=== PATIENT | female | born 1975 | race African-American/Black ===

== ENCOUNTER 2016-12-10 21:38 | Emergency (ER) | payer MEDICAID ==
[~2016-12-10] VITALS: Ht 157.5 cm; Wt 109.0 kg
[~2016-12-10 21:38] MED LIST: ASPIRIN; HCTZ; HYDR12.518; LABETALOL; LISINOPRIL; SIMVASTATIN
[2016-12-11] MEDS ORDERED: KETOROLAC 60MG/2ML VIAL IM STA
[2016-12-11] MEDS ORDERED: LORAZEPAM 2MG/ML CPJ IM STA
[2016-12-11 00:28] LABS: CHLORIDE 104 mEq/L (98-107); INDEX HEMOLYSI 1 (1-3); INDEX ICTERIC 1 (1-4); INDEX LIPEMIC 1 (1-3)
[2016-12-11 00:31] LABS: BASOPHILS % 1.4 % (0.0-2.0); EOSINOPHILS % 1.7 % (0.0-5.0); HEMATOCRIT. 37.6 % (36.0-48.0); HEMOGLOBIN. 12.2 g/dL (12.0-16.0); LYMPHOCYTES % 37.3 % (20.0-50.0); MEAN CORPUSCULAR HEMOGLOBIN 27.1 pg (28.0-32.0); MEAN CORPUSCULAR HGB CONC 32.5 g/dL (31.0-37.0); MEAN CORPUSCULAR VOLUME 83.4 fL (81.0-99.0); MONOCYTES % 5.4 % (2.0-8.0); NEUTROPHILS % 54.2 % (40.0-76.0); PLATELET 357 x1000/uL (130-400); RED BLOOD CELL COUNT 4.51 mill/uL (4.2-5.4); RED CELL DISTRIBUTION WIDTH 16.1 % (11.6-14.6); WHITE BLOOD COUNT 9.9 x1000/uL (4.5-11.0)
[2016-12-11 00:37] LABS: ACETAMINOPHEN < 2 ug/mL (10-30); ALANINE AMINOTRANSFERASE 36 IU/L (13-61); ALBUMIN 3.4 g/dL (3.4-5.0); ANION GAP 9; CALCIUM 8.9 mg/dL (8.5-10.1); CARBON DIOXIDE 31 mEq/L (21-32); ETHANOL BLOOD < 10 mg/dL; UREA NITROGEN BLOOD 28 mg/dL (7-21); eGFR > 60 mL/min (>60)
[2016-12-11 00:57] LABS: CLARITY URINE CLEAR (CLEAR); COLOR URINE YELLOW (YELLOW); GLUCOSE URINE NEGATIVE (NEGATIVE); KETONES URINE NEGATIVE (NEGATIVE); LEUKOCYTE ESTERASE URINE NEGATIVE (NEGATIVE); NITRITE URINE NEGATIVE (NEGATIVE); OCCULT BLOOD URINE 1+ (NEGATIVE); PH URINE 5.5 (4.5-8.0); PROTEIN URINE NEGATIVE (NEGATIVE); SPECIFIC GRAVITY URINE 1.018 (1.005-1.030); UROBILINOGEN URINE 0.2 E.U./dL (0.2-1.0)
[2016-12-11 01:01] LABS: BACTERIA URINE NONE SEEN; CALCIUM PHOSPHATE CRYSTALS UR NONE SEEN /lpf; RBC URINE 0-2 /hpf (0-2); SQUAMOUS EPITHELIAL CELL URINE 1+ /lpf (RARE/1+); WAXY CASTS URINE NONE SEEN /lpf; WBC URINE NONE SEEN /hpf (0-2); YEAST URINE NONE SEEN
[2016-12-11 01:08] LABS: *AMPHETAMINES SCREEN URINE NEGATIVE (NEGATIVE); *BARBITURATES SCREEN URINE NEGATIVE (NEGATIVE); *BENZODIAZEPINES SCREEN URINE NEGATIVE (NEGATIVE); *COCAINE SCREEN URINE NEGATIVE (NEGATIVE); CANNABINOID URINE SCREEN NEGATIVE (NEGATIVE); ECSTASY MDMA SCREEN URINE NEGATIVE (NEGATIVE); METHADONE URINE SCREEN NEGATIVE (NEGATIVE); OPIATES URINE SCREEN NEGATIVE (NEGATIVE); PHENCYCLIDINE URINE SCREEN NEGATIVE (NEGATIVE)
[2016-12-11] MEDS ORDERED: TRAMADOL 50MG TABLET PO ONE (06:15)
[2016-12-11] MEDS ORDERED: KETOROLAC 60MG/2ML VIAL IM ONE (09:30)
[2016-12-11 16:40] VITALS: BP 148/88
== END 2016-12-11 16:51 ==
LOC: ER 21:39
DX: R45.851 Suicidal ideations (principal); R44.0 Auditory hallucinations; M25.561 Pain in right knee; M25.562 Pain in left knee; F17.200 Nicotine dependence, unspecified, uncomplicated; I10 Essential (primary) hypertension; G62.9 Polyneuropathy, unspecified; Z79.82 Long term (current) use of aspirin; Z79.899 Other long term (current) drug therapy
CPT/HCPCS: 36415; 80053; 80305; 80307; 80329; 81001; 81025; 85025; 96372; 99285; G0482; J1885; J2060

== ENCOUNTER 2017-01-12 00:44 | Emergency (ER) | payer MEDICAID ==
[~2017-01-12] VITALS: Ht 165.1 cm; Wt 113.0 kg
[2017-01-12] MEDS ORDERED: ALBUTEROL (0.083%) 2.5MG/3ML NEB HHN STA (01:13)
[2017-01-12] MEDS ORDERED: METHYLPREDNISOLONE SOD SUCC 125 MG/2 ML VIAL IV STA (01:13)
[2017-01-12] MEDS ORDERED: ONDANSETRON HCL 4MG/2ML VIAL IV STA (01:13)
[2017-01-12] MEDS ORDERED: IPRATROPIUM BROMIDE (0.02%) 0.5MG/2.5ML NEB HHN STA (01:13)
[2017-01-12] MEDS ORDERED: DIPHENHYDRAMINE 50MG/ML VIAL IV ONE (01:15)
[2017-01-12 01:26] LABS: BASOPHILS % 0.8 % (0.0-2.0); EOSINOPHILS % 0.9 % (0.0-5.0); HEMOGLOBIN. 12.5 g/dL (12.0-16.0); LYMPHOCYTES % 44.5 % (20.0-50.0); MEAN CORPUSCULAR VOLUME 81.6 fL (81.0-99.0); MEAN PLATELET VOLUME 6.9 fl (7.4-10.4); MONOCYTES % 6.7 % (2.0-8.0); NEUTROPHILS % 47.1 % (40.0-76.0); PLATELET 406 x1000/uL (130-400); RED BLOOD CELL COUNT 4.65 mill/uL (4.2-5.4); RED CELL DISTRIBUTION WIDTH 15.9 % (11.6-14.6); WHITE BLOOD COUNT 12.7 x1000/uL (4.5-11.0)
[2017-01-12 01:43] LABS: ANION GAP 13; CALCIUM 9.1 mg/dL (8.5-10.1); CARBON DIOXIDE 28 mEq/L (21-32); CHLORIDE 97 mEq/L (98-107); INDEX HEMOLYSI 1 (1-3); INDEX ICTERIC 1 (1-4); INDEX LIPEMIC 1 (1-3); TROPONIN I < 0.02 ng/mL (0.00-0.04); UREA NITROGEN BLOOD 16 mg/dL (7-21); eGFR > 60 mL/min (>60)
[2017-01-12 01:55] LABS: NT PRO B-TYPE NATRIURETIC PEP 236 pg/mL (5-125)
[2017-01-12 04:09] VITALS: BP 136/89
== END 2017-01-12 04:28 | disposition home or self-care (01) ==
LOC: ER 00:51
DX: J45.901 Unspecified asthma with (acute) exacerbation (principal); I10 Essential (primary) hypertension; F17.210 Nicotine dependence, cigarettes, uncomplicated
CPT/HCPCS: 36415; 71010; 80048; 83880; 84484; 85025; 93005; 94640; 96374; 96375; 99285; J1200; J2405; J2930; J7611; Z7610

== ENCOUNTER 2019-11-28 22:34 | Emergency (ER) | payer MEDICAID ==
[~2019-11-28] VITALS: Ht 170.2 cm; Wt 114.0 kg
[2019-11-28] MEDS ORDERED: ACETAMINOPHEN 325MG TABLET PO STA (23:03)
[2019-11-28] MEDS ORDERED: SODIUM CHLORIDE 0.9% 1,000 ML IV ONE (23:03)
[2019-11-28] MEDS ORDERED: ONDANSETRON HCL 4MG/2ML INJ IV STA (23:03)
[2019-11-28] MEDS ORDERED: CEFTRIAXONE 1 G PREMIX 50 ML IV ONE (23:15)
[2019-11-28] MEDS ORDERED: AZITHROMYCIN 500 MG in DEXT 5% WATER 250 ML IV ONE (23:15)
[2019-11-28] MEDS ORDERED: GUAIFENESIN/CODEINE 200-20MG/10ML UDC PO ONE (23:15)
[2019-11-28 23:37] LABS: CHLORIDE 101 mEq/L (98-107)
[2019-11-28 23:40] LABS: BASOPHILS % 0.7 % (0.0-2.0); HEMATOCRIT. 40.3 % (36.0-48.0); HEMOGLOBIN. 13.3 g/dL (12.0-16.0); MEAN CORPUSCULAR HEMOGLOBIN 26.5 pg (28.0-32.0); MEAN CORPUSCULAR VOLUME 80.1 fL (81.0-99.0); MONOCYTES % 7.2 % (2.0-8.0); NEUTROPHILS % 82.1 % (40.0-76.0); PLATELET 280 x1000/uL (130-400); RED BLOOD CELL COUNT 5.03 mill/uL (4.2-5.4); RED CELL DISTRIBUTION WIDTH 16.4 % (11.6-14.6)
[2019-11-29] MEDS: GUAIFENESIN 200MG/10ML SUGAR FREE UDC PO NR ×2 (00:15→00:50)
[2019-11-29 00:31] LABS: CLARITY URINE CLOUDY (CLEAR); COLOR URINE YELLOW (YELLOW); KETONES URINE NEGATIVE (NEGATIVE); LEUKOCYTE ESTERASE URINE 1+ (NEGATIVE); NITRITE URINE POSITIVE (NEGATIVE); OCCULT BLOOD URINE NEGATIVE (NEGATIVE); PH URINE 6.5 (4.5-8.0); PROTEIN URINE 1+ (NEGATIVE)
[2019-11-29 03:40] VITALS: BP 151/101
== END 2019-11-29 03:39 | disposition home or self-care (01) ==
LOC: ER 22:34
DX: J40 Bronchitis, not specified as acute or chronic (principal); N39.0 Urinary tract infection, site not specified; I10 Essential (primary) hypertension; F17.200 Nicotine dependence, unspecified, uncomplicated; Z88.6 Allergy status to analgesic agent; Z79.82 Long term (current) use of aspirin
CPT/HCPCS: 36415; 71045; 80053; 81003; 83605; 85025; 87040; 96365; 96367; 96375; 99284; J0456; J0696; J2405; J7030; J7060

== ENCOUNTER 2020-06-11 09:32 | Inpatient (IN) | payer MEDICAID ==
[~2020-06-11] VITALS: Ht 170.2 cm; Wt 133.8 kg
[2020-06-11] MEDS ORDERED: ONDANSETRON HCL 4MG/2ML INJ IV STA (09:53)
[2020-06-11] MEDS ORDERED: DILTIAZEM HCL 5MG/ML 5ML VIAL IV ONE (10:00)
[2020-06-11] MEDS ORDERED: DILTIAZEM HCL 30MG TABLET PO ONE (10:15)
[2020-06-11 10:22] LABS: EOSINOPHILS % 3.1 % (0.0-5.0); HEMOGLOBIN. 13.9 g/dL (12.0-16.0); LYMPHOCYTES % 41.5 % (20.0-50.0); MEAN CORPUSCULAR HEMOGLOBIN 27.5 pg (28.0-32.0); MEAN PLATELET VOLUME 7.7 fl (7.4-10.4); NEUTROPHILS % 49.4 % (40.0-76.0); PLATELET 429 x1000/uL (130-400); RED BLOOD CELL COUNT 5.06 mill/uL (4.2-5.4); RED CELL DISTRIBUTION WIDTH 15.7 % (11.6-14.6)
[2020-06-11 10:28] LABS: CHLORIDE 108 mEq/L (98-107)
[2020-06-11 10:33] LABS: ETHANOL BLOOD < 10 mg/dL; HCG SCREEN NEGATIVE; PARTIAL THROMBOPLASTIN TIME 26.7 sec (23.4-31.0); PROTHROMBIN TIME 10.7 sec (9.6-11.0)
[2020-06-11] MEDS ORDERED: ONDANSETRON HCL 4MG/2ML INJ IV PRN (10:45)
[2020-06-11] MEDS ORDERED: KCL 20MEQ/100ML PREMIX 100 ML IV ONE (11:00)
[2020-06-11] MEDS ORDERED: ENOXAPARIN 100MG/ML SYR SUBCUT ONE (11:00)
[2020-06-11] MEDS ORDERED: POTASSIUM CHLORIDE 20MEQ TABLET SR PO ONE (11:00)
[2020-06-11] MEDS: POTASSIUM CHLORIDE 20MEQ TABLET SR PO SCH (11:32)
[2020-06-11] MEDS: FUROSEMIDE 40MG/4ML VIAL IVP SCH (11:32)
[2020-06-11] MEDS ORDERED: ENOXAPARIN 100MG/ML SYR SUBCUT SCH (11:55)
[2020-06-11] MEDS ORDERED: POTASSIUM CHLORIDE INJ 40 MEQ in DEXT 5% WATER 250 ML IV SCH (13:00)
[2020-06-11 13:15] VITALS: BP 140/68
[2020-06-11 13:51] VITALS: BP 140/68
[2020-06-11] MEDS: DILTIAZEM HCL 60MG TABLET PO SCH ×2 (14:44→21:07)
[2020-06-11] MEDS ORDERED: LISI40TA4 MT (16:42)
[2020-06-11] MEDS ORDERED: BUPR75TA8 MT ×2 (16:42→16:43)
[2020-06-11] MEDS ORDERED: CHLO50TA MT (16:42)
[2020-06-11] MEDS ORDERED: SPIR50TA5 MT (16:42)
[2020-06-11] MEDS ORDERED: LABE100T5 PO (16:42)
[2020-06-11] MEDS ORDERED: AMLO10TA80 MT (16:42)
[2020-06-11 20:25] VITALS: BP 147/93
[2020-06-11] MEDS: ENOXAPARIN 100MG/ML SYR SUBCUT SCH (20:48)
[2020-06-11] MEDS: ATORVASTATIN CALCIUM 10MG TABLET PO SCH (20:48)
[2020-06-11] MEDS: HYDROCODONE/ACETAMINOPHEN 10/325MG TABLET PO PRN (20:49)
[2020-06-11] MEDS: CARVEDILOL 12.5MG TABLET PO SCH (20:49)
[2020-06-12] VITALS (7 sets, daily range): BP systolic 94–140; BP diastolic 63–102
[2020-06-12] MEDS: DILTIAZEM HCL 60MG TABLET PO SCH (06:33)
[2020-06-12 07:23] LABS: BASOPHILS % 0.9 % (0.0-2.0); HEMATOCRIT. 36.6 % (36.0-48.0); HEMOGLOBIN. 12.4 g/dL (12.0-16.0); LYMPHOCYTES % 57.4 % (20.0-50.0); MEAN CORPUSCULAR HEMOGLOBIN 27.7 pg (28.0-32.0); MEAN CORPUSCULAR VOLUME 81.7 fL (81.0-99.0); MEAN PLATELET VOLUME 8.1 fl (7.4-10.4); NEUTROPHILS % 33.7 % (40.0-76.0); PLATELET 354 x1000/uL (130-400); RED BLOOD CELL COUNT 4.47 mill/uL (4.2-5.4); RED CELL DISTRIBUTION WIDTH 15.7 % (11.6-14.6)
[2020-06-12] MEDS ORDERED: POTASSIUM CHLORIDE 20MEQ TABLET SR PO NR (08:45)
[2020-06-12] MEDS: ENOXAPARIN 100MG/ML SYR SUBCUT SCH ×2 (08:47→21:05)
[2020-06-12] MEDS: POTASSIUM CHLORIDE 20MEQ TABLET SR PO SCH (08:47)
[2020-06-12] MEDS: ASPIRIN 81MG EC TABLET PO SCH (08:48)
[2020-06-12] MEDS: CARVEDILOL 12.5MG TABLET PO SCH (08:48)
[2020-06-12] MEDS: FUROSEMIDE 40MG/4ML VIAL IVP SCH (08:48)
[2020-06-12] MEDS: HYDROCODONE/ACETAMINOPHEN 10/325MG TABLET PO PRN ×2 (11:43→21:12)
[2020-06-12] MEDS: DILTIAZEM HCL 30MG TABLET PO SCH ×2 (13:21→21:05)
[2020-06-12 15:39] LABS: CLARITY URINE CLEAR (CLEAR); COLOR URINE YELLOW (YELLOW); KETONES URINE NEGATIVE (NEGATIVE); LEUKOCYTE ESTERASE URINE NEGATIVE (NEGATIVE); NITRITE URINE NEGATIVE (NEGATIVE); OCCULT BLOOD URINE NEGATIVE (NEGATIVE); PH URINE 6.5 (4.5-8.0); PROTEIN URINE NEGATIVE (NEGATIVE); UROBILINOGEN URINE 0.2 E.U./dL (0.2-1.0)
[2020-06-12 16:04] LABS: METHADONE URINE SCREEN NEGATIVE (NEGATIVE)
[2020-06-12 16:05] LABS: *AMPHETAMINES SCREEN URINE NEGATIVE (NEGATIVE); *BARBITURATES SCREEN URINE NEGATIVE (NEGATIVE); *BENZODIAZEPINES SCREEN URINE NEGATIVE (NEGATIVE); CANNABINOID URINE SCREEN NEGATIVE (NEGATIVE); PHENCYCLIDINE URINE SCREEN NEGATIVE (NEGATIVE)
[2020-06-12 16:13] LABS: *COCAINE SCREEN URINE PRESUMTIVE POSITIVE (NEGATIVE); OPIATES URINE SCREEN PRESUMTIVE POSITIVE (NEGATIVE)
[2020-06-12] MEDS ORDERED: CARVEDILOL 3.125 MG TABLET PO SCH (21:00)
[2020-06-12] MEDS: ATORVASTATIN CALCIUM 10MG TABLET PO SCH (21:05)
[2020-06-13 04:00] VITALS: BP 122/82
[2020-06-13] MEDS: DILTIAZEM HCL 30MG TABLET PO SCH ×2 (06:01→14:00)
[2020-06-13 07:42] LABS: BASOPHILS % 0.5 % (0.0-2.0); EOSINOPHILS % 3.9 % (0.0-5.0); HEMOGLOBIN. 12.9 g/dL (12.0-16.0); LYMPHOCYTES % 59.1 % (20.0-50.0); MEAN CORPUSCULAR HEMOGLOBIN 27.7 pg (28.0-32.0); MEAN CORPUSCULAR VOLUME 81.8 fL (81.0-99.0); MEAN PLATELET VOLUME 8.2 fl (7.4-10.4); MONOCYTES % 3.5 % (2.0-8.0); PLATELET 370 x1000/uL (130-400); RED BLOOD CELL COUNT 4.65 mill/uL (4.2-5.4); RED CELL DISTRIBUTION WIDTH 15.8 % (11.6-14.6)
[2020-06-13 07:43] VITALS: BP 144/102
[2020-06-13] MEDS: POTASSIUM CHLORIDE 20MEQ TABLET SR PO SCH (09:14)
[2020-06-13] MEDS: ASPIRIN 81MG EC TABLET PO SCH (09:14)
[2020-06-13] MEDS: ENOXAPARIN 100MG/ML SYR SUBCUT SCH (09:15)
[2020-06-13 11:50] VITALS: BP 132/92
[2020-06-13] MEDS ORDERED: APIX5TAB PO (13:02)
[2020-06-13] MEDS ORDERED: DILT120C88 MT (13:02)
[2020-06-13 14:19] VITALS: BP 132/92
[2020-06-13] MEDS ORDERED: APIXABAN 5 MG TABLET PO SCH (17:00)
[2020-06-14] MEDS ORDERED: POTASSIUM CHLORIDE 20MEQ TABLET SR PO SCH (09:00)
== END 2020-06-13 14:52 | disposition home or self-care (01) | DRG 201 ==
LOC: ER 09:32 → EDBEDREQ 09:56 → 6WST 10:18 → EDBEDREQSVC 10:27 → EDBEDREQ 10:27 → ENRESERV 12:09
PROVIDERS: ADMIT Internal Medicine; ATTEND Internal Medicine
DX: I48.91 Unspecified atrial fibrillation (principal); N17.0 Acute kidney failure with tubular necrosis; I11.0 Hypertensive heart disease with heart failure; E87.6 Hypokalemia; E87.8 Other disorders of electrolyte and fluid balance, not elsewhere classified; E66.9 Obesity, unspecified; E78.5 Hyperlipidemia, unspecified; E78.1 Pure hyperglyceridemia; K21.9 Gastro-esophageal reflux disease without esophagitis; E11.9 Type 2 diabetes mellitus without complications; F14.90 Cocaine use, unspecified, uncomplicated; J45.909 Unspecified asthma, uncomplicated; R00.1 Bradycardia, unspecified; F17.210 Nicotine dependence, cigarettes, uncomplicated; Z68.42 Body mass index [BMI] 45.0-49.9, adult; Z79.01 Long term (current) use of anticoagulants; Z79.899 Other long term (current) drug therapy; Z82.49 Family history of ischemic heart disease and other diseases of the circulatory system; Z82.3 Family history of stroke; Z71.6 Tobacco abuse counseling; Z86.73 Personal history of transient ischemic attack (TIA), and cerebral infarction without residual deficits; Z71.3 Dietary counseling and surveillance; Z88.8 Allergy status to other drugs, medicaments and biological substances; I25.2 Old myocardial infarction; I50.42 Chronic combined systolic (congestive) and diastolic (congestive) heart failure
CPT/HCPCS: 36415; 71045; 80048; 80053; 80061; 80305; 80320; 81003; 83036; 83735; 83880; 84443; 84484; 84703; 85025; 93005; 93306; 99291; J1650; J1940; J2405; J3480; J3490; J7060; G0480

== ENCOUNTER 2021-05-26 08:44 | Inpatient (IN) | payer MEDICAID ==
[~2021-05-26] VITALS: Ht 157.5 cm; Wt 122.5 kg
[~2021-05-26 08:44] MED LIST changes: +APIX5TAB PO; +BUPR75TA8 MT; +CHLO50TA MT; +DILT120C88 MT; +GLIP5TAB12 MT; -HCTZ; -HYDR12.518; +INSU100I13 SQ; -LABETALOL; -LISINOPRIL; +METF-416 MT; +SPIR50TA5 MT
[2021-05-26 09:53] LABS: BASOPHILS % 0.8 % (0.0-2.0); EOSINOPHILS % 3.8 % (0.0-5.0); HEMATOCRIT. 44.7 % (36.0-48.0); HEMOGLOBIN. 15.1 g/dL (12.0-16.0); LYMPHOCYTES % 41.8 % (20.0-50.0); MEAN CORPUSCULAR HEMOGLOBIN 29.3 pg (28.0-32.0); MEAN CORPUSCULAR VOLUME 86.6 fL (81.0-99.0); MEAN PLATELET VOLUME 7.5 fl (7.4-10.4); MONOCYTES % 4.9 % (2.0-8.0); NEUTROPHILS % 48.7 % (40.0-76.0); PLATELET 455 x1000/uL (130-400); RED BLOOD CELL COUNT 5.16 mill/uL (4.2-5.4); RED CELL DISTRIBUTION WIDTH 14.7 % (11.6-14.6)
[2021-05-26 09:55] LABS: CHLORIDE 103 mEq/L (98-107)
[2021-05-26] MEDS ORDERED: SODIUM CHLORIDE 0.9% 1,000 ML IV ONE (12:15)
[2021-05-26] MEDS ORDERED: ENOXAPARIN 30MG/0.3ML SYR SUBCUT SCH (13:00)
[2021-05-26] MEDS ORDERED: ONDANSETRON HCL 4MG/2ML INJ IV PRN (13:15)
[2021-05-26] MEDS ORDERED: CLONIDINE 0.1MG TABLET PO PRN (13:15)
[2021-05-26] MEDS ORDERED: DIPHENHYDRAMINE 50MG/ML VIAL IV PRN (13:15)
[2021-05-26] MEDS ORDERED: ENOXAPARIN 40MG/0.4ML SYR SUBCUT SCH (13:15)
[2021-05-26] MEDS ORDERED: ACETAMINOPHEN 325MG TABLET PO PRN (13:15)
[2021-05-26] MEDS ORDERED: IPRATROPIUM/ALBUTEROL 0.5-3(2.5)MG/3ML NEB HHN PRN (13:15)
[2021-05-26] MEDS ORDERED: POTASSIUM CHLORIDE 20MEQ TABLET SR PO NR (14:00)
[2021-05-26] MEDS: DILTIAZEM HCL 30MG TABLET PO SCH ×2 (14:35→20:28)
[2021-05-26] MEDS ORDERED: DILTIAZEM HCL 5MG/ML 5ML VIAL IV PRN (14:45)
[2021-05-26] MEDS ORDERED: ENOXAPARIN 80MG/0.8ML SYR SUBCUT NR (14:45)
[2021-05-26] MEDS ORDERED: SPIRONOLACTONE 25MG TABLET PO SCH (14:45)
[2021-05-26 17:40] LABS: CLARITY URINE CLOUDY (CLEAR); COLOR URINE YELLOW (YELLOW); KETONES URINE NEGATIVE (NEGATIVE); LEUKOCYTE ESTERASE URINE 2+ (NEGATIVE); NITRITE URINE NEGATIVE (NEGATIVE); OCCULT BLOOD URINE NEGATIVE (NEGATIVE); PH URINE 5.5 (4.5-8.0); PROTEIN URINE TRACE (NEGATIVE); UROBILINOGEN URINE 0.2 E.U./dL (0.2-1.0)
[2021-05-26 18:02] LABS: *BARBITURATES SCREEN URINE NEGATIVE (NEGATIVE)
[2021-05-26 18:03] LABS: *BENZODIAZEPINES SCREEN URINE NEGATIVE (NEGATIVE)
[2021-05-26 18:04] LABS: CANNABINOID URINE SCREEN NEGATIVE (NEGATIVE); METHADONE URINE SCREEN NEGATIVE (NEGATIVE); PHENCYCLIDINE URINE SCREEN NEGATIVE (NEGATIVE)
[2021-05-26 18:10] LABS: *AMPHETAMINES SCREEN URINE PRESUMTIVE POSITIVE (NEGATIVE); *COCAINE SCREEN URINE PRESUMTIVE POSITIVE (NEGATIVE); OPIATES URINE SCREEN PRESUMTIVE POSITIVE (NEGATIVE)
[2021-05-26] MEDS ORDERED: DEXTROSE 50% WATER 50ML SYRINGE IV PRN (23:15)
[2021-05-26] MEDS: ENOXAPARIN 120MG/0.8ML SYR SUBCUT SCH (23:50)
[2021-05-27] MEDS: DILTIAZEM HCL 30MG TABLET PO SCH ×5 (00:54→23:39)
[2021-05-27 05:55] LABS: HEMATOCRIT. 42.5 % (36.0-48.0); HEMOGLOBIN. 14.5 g/dL (12.0-16.0); MEAN CORPUSCULAR HEMOGLOBIN 29.2 pg (28.0-32.0); MEAN CORPUSCULAR VOLUME 85.6 fL (81.0-99.0); MEAN PLATELET VOLUME 7.7 fl (7.4-10.4); PLATELET 423 x1000/uL (130-400); RED BLOOD CELL COUNT 4.97 mill/uL (4.2-5.4); RED CELL DISTRIBUTION WIDTH 14.5 % (11.6-14.6)
[2021-05-27 05:57] LABS: CHLORIDE 111 mEq/L (98-107)
[2021-05-27 06:07] LABS: LDL CHOLESTEROL 107 mg/dL (5-100)
[2021-05-27 06:09] LABS: HDL CHOLESTEROL 30 mg/dL (40-59)
[2021-05-27 06:11] LABS: T4 FREE 0.93 ng/dL (0.76-1.46)
[2021-05-27] MEDS: BLOOD SUGAR DIAGNOSTIC STRIP TEST SCH ×4 (06:47→21:00)
[2021-05-27] MEDS: INSULIN LISPRO (LOW DOSE) 100 UNITS/ML SUBCUT SCH ×5 (06:47→21:00)
[2021-05-27] MEDS ORDERED: CEFTRIAXONE 1 G PREMIX 50 ML IV SCH (07:15)
[2021-05-27] MEDS: SODIUM CHLORIDE 0.9% 1,000 ML IV SCH ×2 (07:26→22:08)
[2021-05-27 09:40] VITALS: BP 129/64
[2021-05-27 10:00] VITALS: BP 129/64
[2021-05-27 12:00] VITALS: BP 130/73
[2021-05-27] MEDS ORDERED: MAGNESIUM 2 G PREMIX 50 ML IV ONE (12:00)
[2021-05-27] MEDS: POTASSIUM CHLORIDE 20MEQ TABLET SR PO SCH (13:04)
[2021-05-27] MEDS: CEFTRIAXONE 1,000 MG in DEXTROSE 5% WATER 50 ML IV SCH (13:05)
[2021-05-27] MEDS: ENOXAPARIN 120MG/0.8ML SYR SUBCUT SCH ×2 (13:07→22:08)
[2021-05-27] MEDS ORDERED: POTASSIUM CHLORIDE 20MEQ TABLET SR PO NR (14:00)
[2021-05-27 16:31] VITALS: BP 122/72
[2021-05-27 20:00] VITALS: BP 139/80
[2021-05-27 20:42] LABS: PLATELET ESTIMATE INCREASED
[2021-05-28] VITALS (7 sets, daily range): BP systolic 141–158; BP diastolic 99–107
[2021-05-28] MEDS: DILTIAZEM HCL 60MG TABLET PO SCH ×3 (07:26→17:49)
[2021-05-28] MEDS: INSULIN LISPRO (LOW DOSE) 100 UNITS/ML SUBCUT SCH ×4 (07:32→22:16)
[2021-05-28] MEDS: BLOOD SUGAR DIAGNOSTIC STRIP TEST SCH ×4 (07:32→21:00)
[2021-05-28 07:54] LABS: EOSINOPHILS % 3.6 % (0.0-5.0); HEMATOCRIT. 40.6 % (36.0-48.0); HEMOGLOBIN. 13.8 g/dL (12.0-16.0); LYMPHOCYTES % 61.6 % (20.0-50.0); MEAN CORPUSCULAR HEMOGLOBIN 28.8 pg (28.0-32.0); MEAN CORPUSCULAR VOLUME 85.2 fL (81.0-99.0); MEAN PLATELET VOLUME 7.6 fl (7.4-10.4); MONOCYTES % 5.2 % (2.0-8.0); NEUTROPHILS % 28.6 % (40.0-76.0); PLATELET 409 x1000/uL (130-400); RED BLOOD CELL COUNT 4.77 mill/uL (4.2-5.4); RED CELL DISTRIBUTION WIDTH 14.7 % (11.6-14.6)
[2021-05-28 08:05] LABS: PHOSPHORUS 2.8 mg/dL (2.5-4.9)
[2021-05-28] MEDS: POTASSIUM CHLORIDE 20MEQ TABLET SR PO SCH (08:56)
[2021-05-28] MEDS: CEFTRIAXONE 1,000 MG in DEXTROSE 5% WATER 50 ML IV SCH (08:56)
[2021-05-28] MEDS: ENOXAPARIN 120MG/0.8ML SYR SUBCUT SCH (08:57)
[2021-05-28] MEDS ORDERED: POTASSIUM CHLORIDE 20MEQ TABLET SR PO NR (09:15)
[2021-05-28] MEDS ORDERED: MAGNESIUM 2 G PREMIX 50 ML IV NR (11:00)
[2021-05-28] MEDS: SODIUM CHLORIDE 0.9% 1,000 ML IV SCH (13:07)
[2021-05-28] MEDS: APIXABAN 5 MG TABLET PO SCH (17:49)
[2021-05-28] MEDS ORDERED: ATORVASTATIN CALCIUM 20MG TABLET PO SCH (21:00)
[2021-05-29 00:04] VITALS: BP 155/89
[2021-05-29] MEDS: DILTIAZEM HCL 60MG TABLET PO SCH ×3 (00:20→12:23)
[2021-05-29 04:00] VITALS: BP 143/102
[2021-05-29] MEDS: INSULIN LISPRO (LOW DOSE) 100 UNITS/ML SUBCUT SCH ×2 (06:12→12:24)
[2021-05-29] MEDS: BLOOD SUGAR DIAGNOSTIC STRIP TEST SCH ×2 (06:12→12:27)
[2021-05-29 07:26] LABS: EOSINOPHILS % 4.5 % (0.0-5.0); HEMATOCRIT. 41.8 % (36.0-48.0); HEMOGLOBIN. 14.3 g/dL (12.0-16.0); LYMPHOCYTES % 58.1 % (20.0-50.0); MEAN CORPUSCULAR HEMOGLOBIN 29.4 pg (28.0-32.0); MEAN CORPUSCULAR VOLUME 86.2 fL (81.0-99.0); MEAN PLATELET VOLUME 7.7 fl (7.4-10.4); MONOCYTES % 5.1 % (2.0-8.0); NEUTROPHILS % 31.3 % (40.0-76.0); PLATELET 398 x1000/uL (130-400); RED BLOOD CELL COUNT 4.85 mill/uL (4.2-5.4); RED CELL DISTRIBUTION WIDTH 14.4 % (11.6-14.6)
[2021-05-29 07:52] LABS: PHOSPHORUS 3.3 mg/dL (2.5-4.9)
[2021-05-29 08:00] VITALS: BP 151/101
[2021-05-29] MEDS: POTASSIUM CHLORIDE 20MEQ TABLET SR PO SCH (08:18)
[2021-05-29] MEDS: APIXABAN 5 MG TABLET PO SCH (08:18)
[2021-05-29] MEDS: CEFTRIAXONE 1,000 MG in DEXTROSE 5% WATER 50 ML IV SCH (09:54)
[2021-05-29 12:00] VITALS: BP 143/97
[2021-05-29] MEDS ORDERED: DILT60TA35 PO (12:10)
[2021-05-29] MEDS ORDERED: INSU100I28 SQ (12:10)
[2021-05-29] MEDS ORDERED: DILTIAZEM HCL 90MG TABLET PO SCH (22:00)
== END 2021-05-29 14:15 | disposition left against medical advice (07) | DRG 201 ==
LOC: ER 08:57 → MICUSO 12:26 → 8WST 05-27 08:44
PROVIDERS: ADMIT Internal Medicine; ATTEND Internal Medicine
DX: I48.91 Unspecified atrial fibrillation (principal); N17.0 Acute kidney failure with tubular necrosis; I42.9 Cardiomyopathy, unspecified; E11.22 Type 2 diabetes mellitus with diabetic chronic kidney disease; D47.3 Essential (hemorrhagic) thrombocythemia; E66.9 Obesity, unspecified; E78.5 Hyperlipidemia, unspecified; E87.6 Hypokalemia; E83.42 Hypomagnesemia; F14.129 Cocaine abuse with intoxication, unspecified; F17.200 Nicotine dependence, unspecified, uncomplicated; I12.9 Hypertensive chronic kidney disease with stage 1 through stage 4 chronic kidney disease, or unspecified chronic kidney disease; F11.10 Opioid abuse, uncomplicated; J44.9 Chronic obstructive pulmonary disease, unspecified; J45.909 Unspecified asthma, uncomplicated; R00.0 Tachycardia, unspecified; F15.129 Other stimulant abuse with intoxication, unspecified; Z53.29 Procedure and treatment not carried out because of patient's decision for other reasons; N18.2 Chronic kidney disease, stage 2 (mild); N39.0 Urinary tract infection, site not specified; Z82.49 Family history of ischemic heart disease and other diseases of the circulatory system; Z83.3 Family history of diabetes mellitus; Z86.73 Personal history of transient ischemic attack (TIA), and cerebral infarction without residual deficits; Z88.6 Allergy status to analgesic agent; Z91.09 Other allergy status, other than to drugs and biological substances; Z79.899 Other long term (current) drug therapy; Z68.42 Body mass index [BMI] 45.0-49.9, adult; Z71.51 Drug abuse counseling and surveillance of drug abuser; Z71.3 Dietary counseling and surveillance; Z71.6 Tobacco abuse counseling; Z98.891 History of uterine scar from previous surgery
CPT/HCPCS: 36415; 71045; 76770; 80048; 80053; 80061; 80305; 81003; 82550; 82962; 83036; 83735; 83880; 84100; 84439; 84443; 84481; 84484; 85025; 93005; 93306; 93970; 99285; J0696; J1650; J1815; J3475; J7030; J7060